=== PATIENT | male | born 1955 | race Two or more races ===

== ENCOUNTER 2023-03-09 11:04 | Outpatient (REF) | payer OTHER, SELFPAY ==
--- NOTE | ~2023-03-09 | XR_ITS ---
EXAMINATION: XR LUMBOSACRAL SPINE WITH OBLIQUES CLINICAL INFORMATION: Status post arthrodesis. COMPARISON: None available. TECHNIQUE: AP, both oblique, and lateral views of the lumbar spine. Lateral view of the lumbosacral junction. FINDINGS: There is bony demineralization. Vertebral body heights are normal. There has been a prior posterior fusion extending from L4 through S1, with intact posterior fixator rods and disc spacers. No hardware failure or loosening is seen. The remaining disc spaces are relatively well-maintained. No acute fracture or spondylolisthesis is seen. There is multi-level moderate thoracic and mild lumbar spondylosis. The posterior elements are intact. The paravertebral soft tissues are unremarkable. XR/XR lumbar spine 4V min IMPRESSION: There is well-maintained alignment status-post L4-S1 posterior fusions and discectomies. No hardware loosening is seen.
== END 2023-03-09 11:05 | disposition home or self-care (01) ==
LOC: HO.HOSX 11:04
PROVIDERS: PCP Internal Medicine; Visit Provider Neurological Surgery
DX: Z98.1 Arthrodesis status (principal)
CPT/HCPCS: 72110

== ENCOUNTER 2023-04-12 10:00 | Outpatient (RCR) | payer OTHER, SELFPAY ==
--- NOTE | 2023-03-17 10:46 | MHC.PT.EP ---
[facility] [place] [facility] [place] [facility] [place] Office [address] Cristy Acevedo [address] [phone] F: [phone] F: [phone] F: [phone] F: [phone] Physical Therapy Plan of Care Date of Evaluation: Date of Surgery: Diagnosis: S/P L4-S1 fusion, arthrodesis status Assessment: 68 y/o male referred to PT S/P L4-S1 fusion, arthrodesis status. This surgery was about 6 months ago and he was painfree for 3 months. States possibly d/t increased activity, he started having increased low back pain with tingling R lateral leg resulting in pain and difficulty with walking, light lifting, sleeping, donning/doffing socks, picking things up from the floor, and getting in/out of car. Examination shows poor core strength, limited lumbar AROM and limited hip ER/IR ROM, poor log-rolling, and pain. Recommend PT 2x/week for 4 weeks to address impairments, implement HEP, and optimize functional mobility. Reviewed back protection with log rolling and getting in/out of car. Frequency and Duration: The patient will be seen 2x/week for 4 weeks Short Term Goals: 2 weeks Compliant with HEP Pt will demonstrate good TA recruitment in hook lying, sitting, and standing Pt will demonstrate increased hip strength by 1/2 MMT for increased lumbopelvic stability Asset Protection Manager Goals: 4 weeks I with HEP and self management of sx Pt will demonstrate ability to walk and negotiate stairs with min to no difficulty Pt will demonstrate ability to perform all lifting ADL's without difficulty Treatment Plan: Modalities to reduce pain, spasms and effusion. Manual therapy to restore motion and function. Therapeutic exercise to improve strength and flexibility. Neuromuscular re-education for posture and balance. Therapeutic activities to return to functional activities of daily living. Electronically signed by: Odette Reagan PT Please sign and return to therapist. Thank you for your referral.
--- NOTE | 2023-05-11 08:21 | MHC.PT.DC ---
[facility] [place] [facility] [place] [facility] [place] Office [address] Cristy Acevedo [address] [phone] F: [phone] F: [phone] F: [phone] F: [phone] Physical Therapy Discharge Report Diagnosis: S/P L4-S1 fusion, arthrodesis status Date of Surgery: Date of Evaluation: 03/17/23 Date of Discharge: 05/11/23 Treatments to Date: 5 Cancellations to Date: 0 No Shows to Date: 0 Discharge Status: Improved Function Independent with HEP Discharge Summary: Pt I with HEP and demonstrating improved technique. Pt to continue with core strengthening as well as back protection that was reviewed first visit. Electronically signed by: Odette Reagan PT Please sign and return to therapist. Thank you for your referral.
== END 2023-05-11 08:22 | disposition home or self-care (01) ==
LOC: HO.PT 10:00
PROVIDERS: PCP Internal Medicine; Visit Provider Neurological Surgery
DX: Z98.1 Arthrodesis status (principal)
CPT/HCPCS: 97110; 97112; 97161

== ENCOUNTER 2023-06-08 12:36 | Outpatient (AMB) | payer OTHER, SELFPAY ==
--- NOTE | 2023-06-08 13:31 | HO.SPINEOV ---
Intake Intake Visit Reasons: 3mo Assessment & Plan Assessment & Plan (1) Status post lumbar and lumbosacral fusion by anterior technique: Code(s): Z98.1 - Arthrodesis status Plan Dear colleague, On 06/08/2023, I saw for follow-up carter Alicia for ongoing back pain. He status post L4-S1 fusion from which he recovered very well. He complains of a mid lumbar back pain that is worse at night and in the morning. Weather conditions also influenced pain. Activity slightly improves his symptoms. Physical therapy did not improve symptoms. His pain sounds arthritic in origin. I would like to order CT of the lumbar spine to assess fusion. I will see him back if the CT is done. Carroll Wei MD, PhD Spine Fellowship Trained Neurosurgeon Director, [facility] Orders: Orders CT lumbar spine wo IV con Today Z98.1 - Arthrodesis status Coding Level of Care Code Est Pt Level 2 (88827) Diagnoses Status post lumbar and lumbosacral fusion by anterior technique Z98.1
== END 2023-06-08 14:11 | disposition home or self-care (01) ==
PROVIDERS: PCP Internal Medicine; Visit Provider Neurological Surgery
DX: Z98.1 Arthrodesis status (principal)
CPT/HCPCS: 99212

== ENCOUNTER → 2023-06-08 12:36 | Outpatient (BNVA) | payer OTHER, SELFPAY | PROVIDERS: Visit Provider Neurological Surgery ==

== ENCOUNTER 2023-06-21 07:25 | Outpatient (REF) | payer MEDICARE, SELFPAY ==
--- NOTE | ~2023-06-21 | CT_ITS ---
EXAMINATION: CT LUMBAR SPINE WITHOUT CONTRAST CLINICAL INFORMATION: Arthrodesis status. COMPARISON: Lumbar spine radiographs 03/09/2023. TECHNIQUE: Finish Molder images were obtained. CT imaging of the lumbar spine was performed without contrast. Data was reformatted into multiplanar images at the acquisition workstation. This CT examination was performed using dose optimization techniques as appropriate, variously including the following: *Automated exposure control *Adjustment of mA and/or kV according to patient size (this includes techniques or standardized protocols for targeted exams where dose is matched to indication/reason for exam; i.e. extremities or head) *Use of iterative reconstruction technique DLP; 571 mGy-cm FINDINGS: There are postoperative changes of a spinal fusion with transpedicular hardware extending from L4 to S1. Hardware is grossly intact with no evidence of suggest loosening or failure. No identifiable bridging bone to confirm the presence of osseous union. Spine alignment is otherwise normal in the sagittal dimension. Vertebral heights are preserved. No acute fracture. Intervertebral disc is are maintained at all levels. Canal patency is not well assessed on this examination due to inherent limitations of CT without intrathecal contrast. Grossly no spinal canal compromise. Limited visualization of the retroperitoneal anatomy reveals no abnormal finding. CT/CT lumbar spine wo IV con IMPRESSION: There are postoperative changes of a spinal fusion with transpedicular hardware extending from L4 to S1. Hardware is grossly intact with no evidence of suggest loosening or failure. No identifiable bridging bone to confirm the presence of osseous union.
== END 2023-06-21 07:26 | disposition home or self-care (01) ==
LOC: HO.CT 07:25
PROVIDERS: PCP Internal Medicine; Visit Provider Neurological Surgery
DX: Z98.1 Arthrodesis status (principal)
CPT/HCPCS: 72131

== ENCOUNTER 2023-06-28 14:30 | Outpatient (AMB) | payer MEDICARE, SELFPAY ==
--- NOTE | 2023-06-28 15:13 | HO.SPINEOV ---
Intake Intake Visit Reasons: CT follow up Intake Note: Mr. Alicia is here today to follow up on CT Scan results. 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 Roblero, On 06/28/2023 I saw for follow-up Napoleon Alicia. He underwent an L4-S1 lumbar fusion in August for severe neurogenic claudication. Those symptoms have disappeared. His main complaint is a mid lumbar back pain with laying down, early in the morning and with in activity. Activity improves the back pain. I obtained a CT of the lumbar spine that shows a solid L5-S1 fusion and an ongoing L4-L5 fusion. He does have significant facet arthropathy and I am wondering if the pain is related to the L3-4 facet joints above the previous fusion. He also tells me that he has significant pain in his hands and shoulders, another sign of arthritis. He will start anti-inflammatory drugs and may call my office for referral for L3-4 facet blocks. I spent 20 minutes in this consult for preparation and review of images. Carroll Wei MD, PhD Spine Fellowship Trained Neurosurgeon Director, [facility] [place] [facility] Coding Level of Care Code Est Pt Level 3 (07785) Diagnoses Status post lumbar and lumbosacral fusion by anterior technique Z98.1 Arthritis, lumbar spine M47.816
== END 2023-06-28 15:57 | disposition home or self-care (01) ==
PROVIDERS: PCP Internal Medicine; Visit Provider Neurological Surgery
DX: Z98.1 Arthrodesis status (principal); M47.816 Spondylosis without myelopathy or radiculopathy, lumbar region
CPT/HCPCS: 99213

== ENCOUNTER → 2023-06-28 14:30 | Outpatient (BNVA) | payer MEDICARE, SELFPAY | PROVIDERS: PCP Internal Medicine; Visit Provider Neurological Surgery | DX: M47.816 Spondylosis without myelopathy or radiculopathy, lumbar region (principal); Z98.1 Arthrodesis status | CPT/HCPCS: 99212 ==

== ENCOUNTER 2024-03-14 14:22 | Outpatient (AMB) | payer MEDICARE, SELFPAY ==
--- NOTE | 2024-03-14 14:36 | A.SPINEOV_ITS ---
Intake Visit Reasons: low back pain Intake Note: Mr. Alicia is here today c/o low back pain. 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 He is status post L4-S1 anterior lumbar interbody fusion. This surgery worked well for his neurogenic claudication symptoms but he is complaining of severe back pain in the lumbar area for year and a half. A CT scan of the lumbar spine showed a solid fusion L4-S1 but also severe facet arthropathy L3-4. I am wondering if his pain is facet related. He wonders if the instrumentation can give him pain as well. I guess that is an option but is very rare. I would 1st like to do facet blocks. I will refer him to our pain management team. He will return to my clinic if those injections are not helpful. I spent 20 minutes in his consult. Carroll Wei MD, PhD Spine Fellowship Trained Neurosurgeon Director, [facility] [place] [facility] Orders: Referrals Pain Management Referral M47.816 - Spondylosis without myelopathy or radiculopathy, lumbar region, Z98.1 - Arthrodesis status Coding Level of Care Code Est Pt Level 3 (21683) Diagnoses Status post lumbar and lumbosacral fusion by anterior technique Z98.1 Arthritis, lumbar spine M47.816
== END 2024-03-14 15:24 | disposition home or self-care (01) ==
PROVIDERS: PCP Internal Medicine; Visit Provider Neurological Surgery
DX: Z98.1 Arthrodesis status (principal); M47.816 Spondylosis without myelopathy or radiculopathy, lumbar region
CPT/HCPCS: 99213

== ENCOUNTER → 2024-03-14 14:22 | Outpatient (BNVA) | payer MEDICARE, SELFPAY | PROVIDERS: PCP Internal Medicine; Visit Provider Neurological Surgery | DX: M47.816 Spondylosis without myelopathy or radiculopathy, lumbar region (principal); Z98.1 Arthrodesis status | CPT/HCPCS: 99212 ==

== ENCOUNTER 2025-01-30 15:12 | Outpatient (AMB) | payer MEDICARE, SELFPAY ==
--- NOTE | 2025-01-30 15:14 | HO.SPINEOV ---
Vital Signs 01/30/25 15:17 Height 5 ft 2 in Weight 174 lb BMI 31.8 Intake Visit Reasons: C/o persistent back pain. Intake Note: Mr. Alicia is here today c/o Low back pain. Kinesiologist Required: No Allergies No Known Allergies Allergy (Verified 01/30/25 15:17) Physical Exam Vital Signs: BMI result Body Mass Index 31.8 Assessment & Plan Assessment & Plan (1) Status post lumbar and lumbosacral fusion by anterior technique: Code(s): Z98.1 - Arthrodesis status Category: Surgical Plan Napoleon is a pleasant 70 year old male who underwent L4-S1 lumbar fusion with Dr. Wei back in 2022. To recap he was evaluated subsequently back in 2022 after surgery for continued back pain. At that time it responded well to ice. Dr. Wei sent him for PT, then a CT scan. He noted excellent fusion at L4-S1. The patient was also found to have quite a bit of facet arthropathy, and was referred to Dr. Perry for facet blocks. Dr. Perry was willing to proceed, but stated that may not be successful due to the overlying surgical hardware. After this was relayed to the patient he refused the injections. He is now back in clinic today to once again discuss his back pain. Today, he reports he has continues severe axial low back pain which has been worsening since he saw Dr. Wei last. He denies any radicular component to his pain. He is concerned that there may be a problem in his low spine other than simply related to his surgery. He states that with increased activity such as performing ADLs around the home his pain significantly worsens to the point where he is unable to walk properly. As stated above he has attempted physical therapy, and at-home stretching/exercise. In addition to this he has attempted several different enkb-afj-zfxltut medications including Tylenol, NSAIDs, pain gel/creams, and pain patches such as Salonpas and lidocaine. Unfortunately his pain continues to persist despite all of these conservative measures. On examination, he has 5/5 strength in his bilateral lower extremities. He ambulates well and rises from a seated position with the assistance of a chair. He has no significant sensational deficits disclosed on examination. (-) bilateral straight leg raise, (-) clonus. On inspection of the closed posterior incision site from his prior surgery they appear to have healed very well. I am not able to palpate any hardware that is out of place or irritating the subcutaneous skin. Given that Napoleon continues to present for severe axial low back pain in his tried several different forms of conservative treatment, I think a MRI of the lumbar spine is reasonable to obtain at this time. I will review it with Dr. Wei when he returns from vacation, and call and update the patient with the results. Ish Wei MD,PhD [facility] Orders: Orders MR lumbar spine wo con 01/30/25 Z98.1 - Arthrodesis status Coding Level of Care Code Est Pt Level 3 (21773) Diagnoses Status post lumbar and lumbosacral fusion by anterior technique Z98.1
[2025-01-30 15:17] VITALS: BMI 31.8
--- OUTSIDE RECORDS SUMMARY | 2025-01-30 17:41 | XMS_ITS | Clinical Summary ---
Author Organization [facility] Address [address] [place] [address] Care Team Providers Care Periodicals Library Assistant Name Role Phone Unavailable Primary Care Provider Unavailabl e Allergies No known active allergies Medications Medication Sig Dispensed Refills Start Date End Date Status LOSARTAN POTASSIUM PO Take 1 tablet by mouth daily. 0 Active ibuprofen 200 MG tablet Take 200 mg by mouth every 6 (six) hours as needed for pain. 0 Active Social History Tobacco Use Types Packs/Day Years Used Date Smoking Tobacco: Never Smokeless Tobacco: Never Alcohol Use Standard Drinks/Week Comments Yes 0 (1 standard drink = 0.6 oz pur e alcohol) social Sex and Gender Information Value Date Recorded Sex Assigned at Not on file Gender Identity Not on file Sexual Orientation Not on file Job Start Date Occupation Industry Not on file Not on file Not on file Last Filed Vital Signs Vital Sign Reading Time Taken Comments Blood Pressure 172/105 09/11/2021 8:43 AM EST Pulse 89 09/11/2021 8:43 AM EST Temperature 36.8 ??C (98.2 ??F) 09/11/2021 8:43 AM ES T Respiratory Rate 16 09/11/2021 8:43 AM EST Oxygen Saturation 99% 09/11/2021 8:43 AM EST Inhaled Oxygen Concentration - - Weight 77.1 kg (170 lb) 09/11/2021 8:43 AM EST Height 162.6 cm (5' 4 ) 09/11/2021 8:43 AM EST Body Mass Index 29.18 09/11/2021 8:43 AM EST Plan of Treatment Health Maintenance Due Date Last Done Comments Hepatitis C Screening 1955 COVID-19 Vaccine (#1) 1954 Depression Screening 1966 Preventative Health Evaluation 01/05/1972 DTap / Tdap / Td (1 - Tdap) 1973 Colon Cancer Screening (Colonoscopy) 1999 Shingrix-Zoster Vaccine (1 of 2) 01/05/2004 Fall Risk Assessment 2019 Pneumococcal Vaccine (1 of 1 - PCV) 2019 Influenza Vaccine (#1) 2024 RSV Adult > 60+ Yrs or Pregn ant (1 - 1-dose 75+ series) 2029 Hepatitis B Vaccines Aged Out No long er eligible based on patient's age to complete this topic RSV Ped < 20 months Aged Out No longe r eligible based on patient's age to complete this topic [place]apoleon Personal/Family Self 1955 [address] [place] [address]
--- OUTSIDE RECORDS SUMMARY | 2025-01-30 17:41 | XMS_ITS | Clinical Summary ---
Author Organization [email or web address] Address [address] [facility] [address] [place] [address] Care Team Providers Care Machine Shorthand Reporter Name Role Phone Unavailable Primary Care Provider Unavailabl e Social History Tobacco Use Types Packs/Day Years Used Date Smoking Tobacco: Never Assessed Sex and Gender Information Value Date Recorded Sex Assigned at Male 08/30/2022 10:40 AM EDT Legal Sex Male 10:40 AM EDT Gender Identity Male 08/30/2022 10:40 AM EDT Sexual Orientation Straight 08/30/2022 10 :40 AM EDT Plan of Treatment Health Maintenance Due Date Last Done Comments CT Colonography 1954 Colonoscopy 1954 Colorectal Cancer Screening 1954 Depression Screening 1954 FIT DNA/Cologuard 1954 FIT 1954 FOBT 1954 Lipid Panel 1954 Sigmoidoscopy 1954 Alcohol/Substance Use Screening 1966 Tobacco Screening 1966 DTaP/Tdap/Td Vaccines (1 - Tdap) 1973 Pneumococcal Vaccine: 50+ Ye ars (1 of 1 - PCV) 01/05/2004 Zoster Vaccines (1 of 2) 01/05/2004 COVID-19 Vaccine ( - 2023-2 5 season) 2024 Influenza Vaccine (#1) 2024 RSV Patients and Pa tients Aged 60 years or older (1 - 1-dose 75+ series) 2029 HIB Vaccines Aged Out No longer eligi ble based on patient's age to complete this topic HPV Vaccines Aged Out No longer eligi ble based on patient's age to complete this topic Hepatitis A Vaccines Aged Out No long er eligible based on patient's age to complete this topic Hepatitis B Vaccines Aged Out No long er eligible based on patient's age to complete this topic IPV Vaccines Aged Out No longer eligi ble based on patient's age to complete this topic Meningococcal Vaccine Aged Out No kaya jalyn eligible based on patient's age to complete this topic RSV under 20 months Aged Out No longe r eligible based on patient's age to complete this topic Rotavirus Vaccines Aged Out No longer eligible based on patient's age to complete this topic
--- OUTSIDE RECORDS SUMMARY | 2025-01-30 17:41 | XMS_ITS | Clinical Summary ---
Author Organization [facility], Address [address] [place] [address] Phone Care Team Providers Care Waxer Name Role Phone Unavailable Primary Care Provider Unavailabl e Allergies No known active allergies Medications docusate sodium (COLACE) 100 MG capsule Take 100 mg by mouth in the morning and 100 mg in the evening. Active hydroCHLOROthia zide 25 MG tablet Take 25 mg by mouth 1 (one) time each day Active ibuprofen (ADVIL,MOTRIN) 200 MG tablet Take 200 mg by mouth every 6 (six) hours if needed for mild pain Active losartan (COZAAR) 50 MG tablet Take 50 mg by mouth 1 (one) time each day Active oxyCODONE (OXY-IR) 5 MG immediate release capsule Take 5 mg by mouth every 4 (four) hours if needed for moderate pain Active sildenafil (VIAGRA) 100 MG tablet Take 100 mg by mouth 1 (one) time each day if needed for erectile dysfunction Active Active Problems Problem Noted Date Diagnosed Date Lumbar radiculopathy 08/09/2022 Spondylolisthesis of lumbar region 08/09/2022 Social History Tobacco Use Types Packs/Day Years Used Date Smoking Tobacco: Never Assessed Sex and Gender Information Value Date Recorded Sex Assigned at Not on file Legal Sex Male 10:36 AM EDT Gender Identity Not on file Sexual Orientation Not on file Last Filed Vital Signs Vital Sign Reading Time Taken Comments Blood Pressure 149/74 09/01/2022 11:21 AM EDT Pulse 102 09/01/2022 11:21 AM EDT Temperature 36.2 ??C (97.1 ??F) 09/01/2022 11:21 AM E DT Respiratory Rate - - Oxygen Saturation - - Inhaled Oxygen Concentration - - Weight - - Height - - Body Mass Index - - Plan of Treatment Health Maintenance Due Date Last Done Comments Colorectal Cancer Screening: Annual FOBT 2003 Colorectal Cancer Screening: Colonoscopy 2003 Colorectal Cancer Screening: Sigmoidoscopy 2003 Pneumococcal Vaccine: 65+ Ye ars (1 of - PCV) 2019 Influenza Vaccine (Season Ended) 2025 Hepatitis B Vaccine Aged Out No longe r eligible based on patient's age to complete this topic Insurance [facility] ([id number])
--- OUTSIDE RECORDS SUMMARY | 2025-01-30 17:41 | XMS_ITS | Clinical Summary ---
Author Organization [facility] [address] [facility] Address [address] [place] [address] [place] [address] Phone Care Team Providers Care Tin Cutter Name Role Phone Naveen Roblero MD Primary Care Provider [phone] Allergies No known active allergies Medications ibuprofen (ADVIL,MOTRIN) 200 mg tablet Take 1 tablet (200 mg total) by mouth every 6 hours as needed for mild pain. Active lidocaine (ZTlido) 1.8 % adhesive patch,medicate d Apply 1 patch topically 1 (one) time each day if needed. (pain). Apply for no more than 12 hours in a 24 hour period 4 Active mv-min/folic/K 1/lycopen/lute in (CENTRUM SILVER MEN ORAL) Take 1 tablet by mouth 1 (one) time each day. Active hydroCHLOROthi azide (HYDRODIURIL) 25 mg tablet TAKE 1 TABLET BY MOUTH DAILY 90 tablet 5 Active losartan (COZAAR) 50 mg tablet TAKE 1 TABLET BY MOUTH DAILY 90 tablet 5 Active clonazePAM (KlonoPIN) 0.5 mg tablet Take 1 tablet (0.5 mg total) by mouth 1 (one) time each day if needed for anxiety. for up to 60 days Max Daily Amount: 0.5 mg 30 tablet 5 Active sildenafiL (VIAGRA) 100 mg tablet Sig: START WITH 1/2 TABLET BY MOUTH AND INCREASE TO 1 TABLET NEEDED 30-60 MINUTES BEFORE INTERCOURSE MAX OF 100MG IN 24 HOURS 10 tablet 5 5 Active sildenafiL (VIAGRA) 100 mg tablet Take by mouth. Sig: START WITH 1/2 TABLET BY MOUTH AND INCREASE TO 1 TABLET NEEDED 30-60 MINUTES BEFORE INTERCOURSE MAX OF 100MG IN 24 HOURS 4 01/15/20 25 Discontin ued(Reord er) Active Problems Problem Noted Date Diagnosed Date Spondylolisthesis, lumbar region 06/10/2022 Overview (07/31/2024): Last Assessment & Plan: Patient is 3 weeks s/p L4-5, L5-S1 OLIF with posterior screw fixation. He states his preop right leg pain is gone, he has been dealing with left posterior leg pain that was mild for about a week after surgery, now seems to be more calf pain the last 2 weeks, he states he did not have left leg pain preop. He has not had any fevers or wound drainage, he did have some sweats at night and checked his temps which were all normal at home. He has been ambulating and staying active. He does require some Dilaudid, tried just using Tylenol and did not find enough pain relief. Mr. Alicia is doing well postop, however given his left calf pain, sweats at night, we will check left lower extremity Dopplers to rule out DVT. He has a follow-up appointment in 6 weeks with lumbar spine x-rays with Dr. Wei. All postop questions answered, his left leg symptoms could be postsurgical pain that should resolve in the next few weeks. I asked him to call with any concerns or questions prior to his next appointment. Lumbar radiculopathy, right 03/12/2022 Overview (07/31/2024): Last Assessment & Plan: Patient is 2 weeks s/p L5-S1 Penaloza procedure with decompression of L5 nerve root, for right L5 radiculopathy with spondylolisthesis. Patient states his right leg pain is gone, he is feeling well other than some right low back pain, he thinks it could be incisional pain. He was using oxycodone for about a week +, currently is just using Tylenol. He notes that he is sleeping better, walking better. He denies any fever, wound drainage, sweats chills, bowel bladder issues, poor appetite. He had low- grade temp right after surgery, did deep breathing exercises and that resolved. Patient is doing well, should note continued improvements with time. He is already active and walking, will increase his activities as tolerated. I asked him to call for a second postop visit in 6 weeks if he has persistent low back pain, however he is doing well and likely he will feel better by then. All postop questions answered. He will call with any concerns or questions. He did not need a refill on pain medication today. JAVID-inhibitor cough 12/27/2018 Essential hypertension 11/06/2018 Assessment & Plan (12/28/2024 3:45 PM EST): Orders: Basic metabolic panel; Future Benign prostatic hyperplasia with nocturia 06/22 Anxiety disorder 06/19/2015 Depression 05/01/2015 Lumbago 05/01/2015 Encounters Date Type Department Care Team Description 12/28/2024 3:00 PM EST Office Visit Adult Medicine [address] [phone] Naveen Roblero MD Encounter for subsequent annual wellness visit (AWV) in Medicare patient (Primary Dx); Essential hypertension; High cholesterol from Last 3 Months Immunizations Name Administration Dates Next Due Influenza Quadravalent, MDCK , 0.5ml, preservative free (Flucelvax) 6mo and older 07/23/2020,12/27/2018 Influenza Quadravalent, MDCK , 0.5ml, with preservative (Flucelvax) 6mo and older 08/16/2021 Influenza trivalent, 0.5mL ( Fluzone High-dose) 65yo and older 07/18/2023 Influenza trivalent, with pr eservative (Fluzone; Afluria) 6mo and older 08/10/2019 Pneumococcal conjugate 13 va lent (Prevnar 13, PCV13) 2mo and older 02/19/2019 Tdap Tetanus diptheria acell ular pertussis (Boostrix; Adacel) 7yo and older 07/20/2012 Zoster Live 12/20/2017 Surgical History Surgery Date Site/Laterality Comments COLONOSCOPY 07/12/2006 PROCEDURE: HISTORICAL COLONOSCOPY; COMMENT: Dr. Vega - internal hemorrhoids, diverticulosis, otherwise negative to the cecum COLONOSCOPY 02/24/2015 PROCEDURE: HISTORICAL COLONOSCOPY; COMMENT: normal OTHER SURGICAL HISTORY 02/26/2022 PROCEDURE: SD JIMENES FACETECTOMY & FORAMOTOMY 1 VRT SGM LUMBAR; COMMENT: L5-S1 Penaloza procedure with decompression of L5 nerve root for right L5 radiculopathy with spondylolisthesis, Dr. Wei OTHER SURGICAL HISTORY 09/15/2022 PROCEDURE: SD ARTHRODESIS POSTERIOR INTERBODY 1 NTRSPC LUMBAR; COMMENT: L4-5, L5-S1 OLIF with posterior screw fixation, Dr. Wei Medical History Medical History Date Comments Obesity 07/20/2012 DX:Obesity HTN (hypertension) DX:HTN (hyper tension) Family History Medical History Relation Name Comments Hypertension Son Diabetes Other cancer Neg Hx no one with any ca as of 2016 Relation Name Status Comments Son Social History Tobacco Use Types Packs/Day Years Used Date Smoking Tobacco: Never Smokeless Tobacco: Never Tobacco Cessation:Counseling Given: Not Answered Alcohol Use Standard Drinks/Week Comments Yes 4.2 (1 standard drink = 0.6 oz p ure alcohol) Sex and Gender Information Value Date Recorded Sex Assigned at Not on file Legal Sex Male 1:55 AM EST Gender Identity Not on file Sexual Orientation Not on file Obstetrics History Last Filed Vital Signs Vital Sign Reading Time Taken Comments Blood Pressure 110/70 12/28/2024 3:09 PM EST c R arm Pulse 85 12/28/2024 3:09 PM EST Temperature 36.4 ??C (97.6 ??F) 12/28/2024 3:09 PM ES T Respiratory Rate 19 12/28/2024 3:09 PM EST Oxygen Saturation 98% 12/28/2024 3:09 PM EST Inhaled Oxygen Concentration - - Weight 78.5 kg (173 lb) 12/28/2024 3:09 PM EST Height 157.5 cm (5' 2 ) 12/28/2024 3:09 PM EST Body Mass Index 31.64 12/28/2024 3:09 PM EST Plan of Treatment Upcoming Encounters Date Type Department Care Team (Late st Contact Info) Description 07/09/2025 9:30 AM EDT Office Visit Adult Medicine [address] [phone] Naveen Roblero MD [address] [place] [address] [phone] 12/30/2025 3:00 PM EST Office Visit Adult Medicine [address] [phone] Naveen Roblero MD [address] [place] [address] Health Maintenance Due Date Last Done Comments Zoster Vaccines (2 of 3) 02/14/2018 12/20/2017 Pneumococcal Vaccine: 50+ Years (2 of 2 - PPSV23) 02/20/2020 02/19/2019 DTaP,Tdap,and Td Vaccines (2 - Td or Tdap) 07/20/2022 07/20/2012 Social Influencers of Health Screening 10/09/2022 COVID-19 Vaccine ( season) 2024 10/02/2021, 02/04/2021, 01/14/2021 Colorectal Cancer Screening: Colonoscopy 02/24/2025 02/24/2015 Depression Screening 12/28/2025 12/28/2024 Falls Risk Assessment 12/28/2025 12/28/2024 Medicare Annual Wellness Visit 12/28/2025 12/28/2024 Hypertension/CHF/CAD Annual BMP Blood Test 01/01/2026 01/01/2025, 07/18/2023 RSV Immunization Adult Patients (1 - 1-dose 75+ series) 2029 Cholesterol Screening (Lipid Panel) 01/01/2030 01/01/2025, 07/18/2023 Hepatitis C Screening Completed 09/17/2015 Influenza Vaccine Completed 07/23/2024, , 08/16/2021, Additional history exists HIB Vaccines Aged Out No longer eligi [...] on patient's age to complete this topic MMR Vaccines Aged Out No longer eligi ble based on patient's age to complete this topic Meningococcal ACWY Vaccine Aged Out N o longer eligible based on patient's age to complete this topic Meningococcal B Vacine Aged Out No lo nger eligible based on patient's age to complete this topic RSV Immunization Patients Under 20 months Aged Out No longer eligible based on patient's age to complete this topic Varicella Vaccines Aged Out No longer eligible based on patient's age to complete this topic Procedures Procedure Name Priority Date/Time Associated Diagnosis Comments BASIC METABOLIC PANEL Routine 01/01/2025 11:43 AM EST Essential hypertension LIPID PANEL WITH REFLEX TO DIRECT LDL Routine 01/01/2025 11:43 AM EST High cholesterol HEPATITIS C SCREENING Routine 09/17/2015 COLONOSCOPY Routine 02/24/2015 from Last 3 Months or Most Recently Relevant to Health Maintenance Results * (ABNORMAL) Lipid panel with reflex to direct LDL (01/01/2025 11:43 AM EST) Cholesterol 176 0 - 200 mg/dL LAB CHEMISTRY METHOD 01/01/2025 3:55 PM [facility] Triglycerides 137 0 - 150 mg/dL LAB CHEMISTRY METHOD 01/01/2025 3:55 PM [facility] HDL 43 >=40 mg/dL LAB CHEMISTRY METHOD 01/01/2025 3:55 PM [facility] LDL Calculated 106(H) 0 - 100 mg/dL LAB CHEMISTRY METHOD 01/01/2025 3:55 PM [facility] VLDL Cholesterol Avery 27.4 mg/dL LAB CHEMISTRY METHOD 01/01/2025 3:55 PM [facility] Non HDL Chol. (LDL+VLDL) 133 <145 mg/dL LAB CHEMISTRY METHOD 01/01/2025 3:55 PM [facility] Chol/HDL Ratio 4.1 0.0 - 4.4 LAB CHEMISTRY METHOD 01/01/2025 3:55 PM EST [facility] Blood Venous blood specimen / Unknown Venipuncture / Unknown 01/01/2025 11:43 AM EST 01/01/2025 11:43 AM EST us Naveen Roblero MD LAB BLOOD ORDERABLES Final Resu lt [facility] [address] [place] [address], [place] [phone] * (ABNORMAL) Basic metabolic panel (01/01/2025 11:43 AM EST) Sodium 140 133 - 145 mmol/L LAB CHEMISTRY METHOD 01/01/2025 3:51 PM [facility] Potassium 4.3 3.5 - 5.5 mmol/L LAB CHEMISTRY METHOD 01/01/2025 3:51 PM [facility] Chloride 103 96 - 110 mmol/L LAB CHEMISTRY METHOD 01/01/2025 3:51 PM [facility] CO2 29 21 - 32 mmol/L LAB CHEMISTRY METHOD 01/01/2025 3:51 PM [facility] Anion Gap 8 3 - 11 LAB CHEMISTRY METHOD 01/01/2025 3:51 PM [facility] Glucose 122(H) 70 - 100 mg/dL LAB CHEMISTRY METHOD 01/01/2025 3:51 PM [facility] BUN 17 5 - 25 mg/dL LAB CHEMISTRY METHOD 01/01/2025 3:51 PM [facility] Creatinine 1.14 0.70 - 1.30 mg/dL LAB CHEMISTRY METHOD 01/01/2025 3:51 PM [facility] eGFR 69 >=60 mL/min/1. 73m2 LAB CHEMISTRY METHOD 01/01/2025 3:51 PM [facility] Comment:Calculation based on the??Chronic Kidney Disease Epidemiology Collaboration (CKD-EPI) equation refit??without adjustment for race. BUN/Creatinine Ratio 14.9 LAB CHEMISTRY METHOD 01/01/2025 3:51 PM EST [facility] Calcium 9.6 8.5 - 10.5 mg/dL LAB CHEMISTRY METHOD 01/01/2025 3:51 PM EST [facility] ([facility] Blood Venous blood specimen / Unknown Venipuncture / Unknown 01/01/2025 11:43 AM EST 01/01/2025 11:43 AM EST us Naveen Roblero MD LAB BLOOD ORDERABLES Final Resu lt [facility] ([facility]) [facility] [address] [place] [address], [place] [phone] * Hepatitis C Screening (09/17/2015) Hepatitis C Screening abstracted Historical Provider HEALTH MAINTENANCE Final Result * Colonoscopy (02/24/2015) Colonoscopy no interpretation , abstracted Anatomical Region Laterality Modality Other Historical Provider HEALTH MAINTENANCE Final Result from Last 3 Months or Most Recently Relevant to Health Maintenance Insurance [employer] - [place] MEDICARE ADVANTAGE Advance Directives * Full Code - Confirmed (Latest Code Status on File) Date Activated Date Inactivated Comments 12/28/2024 3:45 PM This code stat us was ascertained in the following way: Code status discussion: discussion with patient To update the patient's code status, place a code status order. Do not modify or discontinue any currently active code status orders. Care Teams Tin Cutter Relationship Specialty Start Date End Date Naveen Roblero MD [address] [place] [id number] PCP - General Internal Medicine 09/04/24
--- OUTSIDE RECORDS SUMMARY | 2025-01-30 17:41 | XMS_ITS | Encounter Summary ---
Author Organization [employer] [facility] Address [address] [facility] 7[address] [place] [address] Care Team Providers Care Locomotive Mechanic Name Role Phone Unavailable Primary Care Provider Unavailabl e Encounter Details Date Type Department Care Team (Latest Contact Info) Description 01/11/2022 Abstract [facility] CONVERSIONS Dental, Provider, DDS Social History Tobacco Use Types Packs/Day Years Used Date Smoking Tobacco: Never Assessed Sex and Gender Information Value Date Recorded Sex Assigned at Male 08/30/2022 10:40 AM EDT Legal Sex Male 10:40 AM EDT Gender Identity Male 08/30/2022 10:40 AM EDT Sexual Orientation Straight 08/30/2022 10 :40 AM EDT documented as of this encounter Plan of Treatment Not on file documented as of this encounter Visit Diagnoses Not on filedocumented in this encounter
== END 2025-01-30 15:44 | disposition home or self-care (01) ==
LOC: HO.HNS 15:13
PROVIDERS: PCP Internal Medicine; Visit Provider Physician Assistant
DX: Z98.1 Arthrodesis status (principal)
CPT/HCPCS: 99213

== ENCOUNTER → 2025-01-30 15:12 | Outpatient (BNVA) | payer MEDICARE, SELFPAY | PROVIDERS: PCP Internal Medicine; Visit Provider Physician Assistant | DX: M54.50 Low back pain, unspecified (principal); Z98.1 Arthrodesis status | CPT/HCPCS: 99212 ==

== ENCOUNTER → 2025-02-21 11:15 | Outpatient (BNV) | payer MEDICARE, SELFPAY | PROVIDERS: PCP Internal Medicine; Visit Provider Radiology Diagnostic Radiology | DX: M51.369 Other intervertebral disc degeneration, lumbar region without mention of lumbar back pain or lower extremity pain (principal); M48.061 Spinal stenosis, lumbar region without neurogenic claudication | CPT/HCPCS: 72148 ==

== ENCOUNTER 2025-02-21 11:31 | Outpatient (REF) | payer MEDICARE, SELFPAY ==
--- NOTE | ~2025-02-21 | MR_ITS ---
CLINICAL HISTORY: Z98.1 - SEVERE AXIAL LBP IN L4-S1 FUSION 2022 --- Additional Notes or Special Instr uctions: Severe axial low back pain in the setting of L4-S1 fusion in 2022. MR of the lumbar spine without contrast Comparison: None Findings: Normal alignment. Status post posterior fusion at L4 through S1 with interbody disc spacers. Mild amount of Modic type 2 change T11/T12, T12/L1. 1.4 cm hemangioma in T12. 8 mm hemangioma in T2. 6 mm hemangioma in L3. Otherwise normal marrow signal. No cord expansion or abnormal signal intensity. The conus medullaris terminates at L1, which is normal. The cauda equina is unremarkable. L1/L2: 3 mm broad-based disc bulge. No facet joint or ligamentum flavum hypertrophy. Mild central canal stenosis. Mild bilateral lateral recess stenosis. No foraminal stenosis. L2/L3: 4 mm broad-based disc bulge. Moderate facet joint and ligamentum flavum hypertrophy. Mild central canal stenosis. Mild bilateral lateral recess stenosis. Minimal bilateral foraminal stenosis. L3/L4: 4 mm broad-based disc bulge. Moderate to severe facet joint and ligamentum flavum hypertrophy. Moderate central canal stenosis. Moderate to severe bilateral lateral recess stenosis. Mild bilateral foraminal stenosis, greater on the left. L4/L5: Status post discectomy. Moderate facet joint and ligamentum flavum hypertrophy. Mild central canal stenosis. Moderate right and mild left lateral recess stenosis. No foraminal stenosis. L5/S1: Status post discectomy. Moderate facet joint and ligamentum flavum hypertrophy. Mild central canal stenosis. Mild right and no left lateral recess stenosis. Minimal right and no left foraminal stenosis. Bilateral renal parapelvic cysts. Impression: No acute findings. Multilevel degenerative change, detailed above. Central canal stenosis is most prominent at L3/L4 with moderate central stenosis. This document has been electronically signed by: Debby Ortega MD on 02/26/2025 14:13:14
--- OUTSIDE RECORDS SUMMARY | 2025-02-21 13:54 | XMS_ITS | Clinical Summary ---
Author Organization [facility] [address] [facility] Address [address] [place] [address] [place] [address] Phone Care Team Providers Care Editor Magazine Name Role Phone Naveen Roblero MD Primary Care Provider [phone] Allergies No known active allergies Medications ibuprofen (ADVIL,MOTRIN) 200 mg tablet Take 1 tablet (200 mg total) by mouth every 6 hours as needed for mild pain. Active lidocaine (ZTlido) 1.8 % adhesive patch,medicated Apply 1 patch topically 1 (one) time each day if needed. (pain). Apply for no more than 12 hours in a 24 hour period 4 Active mv-min/folic/K1 /lycopen/lutein (CENTRUM SILVER MEN ORAL) Take 1 tablet by mouth 1 (one) time each day. Active hydroCHLOROthia zide (HYDRODIURIL) 25 mg tablet TAKE 1 TABLET [...] 24 HOURS 10 tablet 5 5 Active Active Problems Problem Noted Date Diagnosed [...] 3:00 PM EST Office Visit Adult Medicine [address] [phone] Naveen Roblero MD Encounter for subsequent annual [...] COMMENT: normal OTHER SURGICAL HISTORY 02/26/2022 PROCEDURE: CA JIMENES FACETECTOMY & FORAMOTOMY 1 VRT SGM LUMBAR; COMMENT: L5-S1 Penaloza procedure with decompression of L5 nerve root for right L5 radiculopathy with spondylolisthesis, Dr. Wei OTHER SURGICAL HISTORY 09/15/2022 PROCEDURE: CA ARTHRODESIS POSTERIOR INTERBODY 1 NTRSPC LUMBAR; COMMENT: L4-5, L5-S1 OLIF with posterior screw fixation, Dr. Wei Medical History Medical History Date Comments Obesity 07/20/2012 DX:Obesity HTN (hypertension) DX:HTN (hyper tension) Family History Medical History Relation Name Comments Hypertension Son Diabetes Other cancer Neg Hx no one with any ca as of 2017 Relation Name Status Comments Son Social History [...] 9:30 AM EDT Office Visit Adult Medicine [address] [phone] Naveen Roblero MD [address] [place] [phone] 12/30/2025 3:00 PM EST Office Visit Adult Medicine [address] [phone] Naveen Roblero MD [address] [place] [phone] Health Maintenance Due Date Last Done Comments [...] age to complete this topic Meningococcal B Vaccine Aged Out No l onger eligible based on patient's age to complete [...] mg/dL LAB CHEMISTRY METHOD 01/01/2025 3:55 PM [facility] Triglycerides 137 0 - 150 mg/dL LAB CHEMISTRY METHOD 01/01/2025 3:55 PM [facility] HDL 43 >=40 mg/dL LAB CHEMISTRY METHOD 01/01/2025 3:55 PM [facility] LDL Calculated 106(H) 0 - 100 mg/dL LAB CHEMISTRY METHOD 01/01/2025 3:55 PM [facility] VLDL Cholesterol Avery 27.4 mg/dL LAB CHEMISTRY METHOD 01/01/2025 3:55 PM [facility] Non HDL Chol. (LDL+VLDL) 133 <145 mg/dL LAB CHEMISTRY METHOD 01/01/2025 3:55 PM [facility] Chol/HDL Ratio 4.1 0.0 - 4.4 LAB CHEMISTRY METHOD 01/01/2025 3:55 PM [facility] Blood Venous blood specimen / Unknown Venipuncture / Unknown 01/01/2025 11:43 AM EST 01/01/2025 11:43 AM EST us Naveen Roblero MD LAB BLOOD ORDERABLES Final Resu lt [facility] [address] [place] [address], * (ABNORMAL) Basic metabolic panel (01/01/2025 11:43 AM EST) Sodium 140 133 - 145 mmol/L LAB CHEMISTRY METHOD 01/01/2025 3:51 PM EST [facility] Potassium 4.3 3.5 - 5.5 mmol/L LAB CHEMISTRY METHOD 01/01/2025 3:51 PM [facility] Chloride 103 96 - 110 mmol/L LAB CHEMISTRY METHOD 01/01/2025 3:51 PM [facility] CO2 29 21 - 32 mmol/L LAB CHEMISTRY METHOD 01/01/2025 3:51 PM [facility] Anion Gap 8 3 - 11 LAB CHEMISTRY METHOD 01/01/2025 3:51 PM [facility] Glucose 122(H) 70 - 100 mg/dL LAB CHEMISTRY METHOD 01/01/2025 3:51 PM [facility] BUN 17 5 - 25 mg/dL LAB CHEMISTRY METHOD 01/01/2025 3:51 PM [facility] Creatinine 1.14 0.70 - 1.30 mg/dL LAB CHEMISTRY METHOD 01/01/2025 3:51 PM [facility] eGFR 69 >=60 mL/min/1. 73m2 LAB CHEMISTRY METHOD 01/01/2025 3:51 PM [facility] Comment:Calculation based on the??Chronic Kidney Disease Epidemiology Collaboration (CKD-EPI) equation refit??without adjustment for race. BUN/Creatinine Ratio 14.9 LAB CHEMISTRY METHOD 01/01/2025 3:51 PM [facility] Calcium 9.6 8.5 - 10.5 mg/dL LAB CHEMISTRY METHOD 01/01/2025 3:51 PM [facility] Blood Venous blood specimen / Unknown Venipuncture / Unknown 01/01/2025 11:43 AM EST 01/01/2025 11:43 AM EST us Naveen Roblero MD LAB BLOOD ORDERABLES Final Resu lt [facility] [address] [place] [address], [place] [phone] * Hepatitis C Screening (09/17/2015) Hepatitis C [...] currently active code status orders. Care Teams Editor Magazine Relationship Specialty Start Date End Date Naveen Roblero MD [address] [place] [phone] PCP - General Internal Medicine 09/04/24
--- OUTSIDE RECORDS SUMMARY | 2025-02-21 13:54 | XMS_ITS | Clinical Summary ---
Author Organization [facility] Address [address] [place] [address] Care Team Providers Care Locomotive Electrician Name Role Phone Unavailable Primary Care Provider [...] Self 1955 [address] [place] [address]
--- OUTSIDE RECORDS SUMMARY | 2025-02-21 13:54 | XMS_ITS | Clinical Summary ---
Author Organization [facility], Address [address] [place] [address] Phone Care Team Providers Care Group Marketing Vp Name Role Phone Unavailable Primary Care Provider [...] Colorectal Cancer Screening: Sigmoidoscopy 2003 Pneumococcal Vaccine: 50+ Ye ars (1 of - PCV) 01/05/2004 Influenza Vaccine (Season Ended) 2025 Hepatitis B Vaccine Aged Out No longe r eligible based on patient's age to complete this topic Insurance [facility] ([id number])
--- OUTSIDE RECORDS SUMMARY | 2025-02-21 13:54 | XMS_ITS | Encounter Summary ---
Author Organization [facility] Address [address] [facility] [address] [place] [address] Care Team Providers Care Fashion Consultant Selling Name Role Phone Unavailable Primary Care Provider Unavailabl e Encounter Details Date Type Department Care Team (Latest Contact Info) Description 01/11/2022 Abstract [facility] CONVERSIONS Dental, Provider, DDS Social History Tobacco [...]
--- OUTSIDE RECORDS SUMMARY | 2025-02-21 13:54 | XMS_ITS | Clinical Summary ---
Author Organization [employer] Address [address] [facility] [address] [place] [address] Care Team Providers Care Welder Apprentice Arc Name Role Phone Unavailable Primary Care Provider [...]
== END 2025-02-21 11:32 | disposition home or self-care (01) ==
LOC: HO.MRI 11:31
PROVIDERS: PCP Internal Medicine; Visit Provider Physician Assistant
DX: Z98.1 Arthrodesis status (principal); M48.061 Spinal stenosis, lumbar region without neurogenic claudication
CPT/HCPCS: 72148

== ENCOUNTER 2025-03-05 13:11 | Outpatient (AMB) | payer MEDICARE, SELFPAY ==
--- NOTE | 2025-03-05 13:14 | A.SPINEOV_ITS ---
Intake Visit Reasons: MRI f/up Intake Note: Mr. Alicia is here today to F/u on the results to his MRI. Oncology Coordinator Required: No Allergies No Known Allergies Allergy (Verified 03/05/25 13:16) Assessment & Plan Assessment & Plan (1) Status post lumbar and lumbosacral fusion by anterior technique: Code(s): Z98.1 - Arthrodesis status Category: Medical Plan Napoleon is a pleasant 70-year-old male who comes in today to review his MRI imaging. To recap he was continuing to have low back pain despite lumbar fusion L4-5, L5-S1. It is well localized to the middle of his back near what I would call about L5. He denies any radicular component down his legs today. He reports that his pain seems to flare-up after laying on his back for a period of time. His MRI imaging looks very good, it shows no evidence of continued nerve root impingement or degeneration. I believe his pain is likely musculoskeletal in origin. I will send in a prescription of muscle relaxers for him and encouraged him to allow the tincture of time to take its course. We do see improvement from our lumbar spine fusion patient's all the way out to a year out from surgery. She was very happy to hear that he does not require subsequent surgical intervention at this time. Ish Wei MD,PhD [facility] Medications: New baclofen Do not drive or operate heavy machinery while taking this medication as it can sedate you. 10 mg PO TID 30 tabs 1RF muscle spasms Coding Level of Care Code Global (03554) Diagnoses Status post lumbar and lumbosacral fusion by anterior technique Z98.1
--- OUTSIDE RECORDS SUMMARY | 2025-03-05 14:26 | XMS_ITS ---
Author Name [facility] Organization Unknown Encounters Encounter Type Encounter Reason Primary Diagnosis Location Date Ambulatory [facility] 08/10/2024 Care Team Organization Name Specialty Phone Email Start Date End Da te [facility] 2024
--- OUTSIDE RECORDS SUMMARY | 2025-03-05 14:26 | XMS_ITS | Clinical Summary ---
Author Organization [facility] [address] [facility] Address [address] [place] [address] [place] [address] Phone Care Team Providers Care Pie Cutter Name Role Phone Naveen Roblero MD Primary Care Provider [phone] Allergies No known active allergies Medications ibuprofen [...] BY MOUTH DAILY 90 tablet 5 Active sildenafiL (VIAGRA) 100 mg tablet Sig: START WITH 1/2 TABLET BY MOUTH AND INCREASE TO 1 TABLET NEEDED 30-60 MINUTES BEFORE INTERCOURSE MAX OF 100MG IN 24 HOURS 10 tablet 5 5 Active clonazePAM (KlonoPIN) 0.5 mg tablet Take 1 tablet (0.5 mg total) by mouth 1 (one) time each day if needed for anxiety. for up to 60 days Max Daily Amount: 0.5 mg 30 tablet 5 Active clonazePAM (KlonoPIN) 0.5 mg tablet Take 1 tablet (0.5 mg total) by mouth 1 (one) time each day if needed for anxiety. for up to 60 days Max Daily Amount: 0.5 mg 30 tablet 5 02/26/20 25 Discontin ued(Reord er) Active Problems Problem [...] 3:00 PM EST Office Visit Adult Medicine [address] [phone] Naveen Roblero MD Encounter for subsequent annual [...] COMMENT: normal OTHER SURGICAL HISTORY 02/26/2022 PROCEDURE: [place] JIMENES FACETECTOMY & FORAMOTOMY 1 VRT SGM LUMBAR; COMMENT: L5-S1 Penaloza procedure with decompression of L5 nerve root for right L5 radiculopathy with spondylolisthesis, Dr. Wei OTHER SURGICAL HISTORY 09/15/2022 PROCEDURE: [place] ARTHRODESIS POSTERIOR INTERBODY 1 NTRSPC LUMBAR; COMMENT: [...] 9:30 AM EDT Office Visit Adult Medicine [address] [phone] Naveen Roblero MD [address] [place] [address] [place] [address] 12/30/2025 3:00 PM EST Office Visit Adult Medicine [facility] [address] [place] [address] Naveen Roblero MD [address] [place] [address] Health Maintenance Due Date Last Done Comments [...] mg/dL LAB CHEMISTRY METHOD 01/01/2025 3:55 PM [facility] Triglycerides 137 0 - 150 mg/dL LAB CHEMISTRY METHOD 01/01/2025 3:55 PM [facility] HDL 43 >=40 mg/dL LAB CHEMISTRY METHOD 01/01/2025 3:55 PM [facility] LDL Calculated 106(H) 0 - 100 mg/dL LAB CHEMISTRY METHOD 01/01/2025 3:55 PM [facility] VLDL Cholesterol Avery 27.4 mg/dL LAB CHEMISTRY METHOD 01/01/2025 3:55 PM EST [facility] Non HDL Chol. (LDL+VLDL) 133 <145 mg/dL LAB CHEMISTRY METHOD 01/01/2025 3:55 PM [facility] Chol/HDL Ratio 4.1 0.0 - 4.4 LAB CHEMISTRY METHOD 01/01/2025 3:55 PM [facility] Blood Venous blood specimen / Unknown Venipuncture / Unknown 01/01/2025 11:43 AM EST 01/01/2025 11:43 AM EST us Naveen Roblero MD LAB BLOOD ORDERABLES Final Resu lt [facility] [address] [place] [address], * (ABNORMAL) Basic metabolic panel (01/01/2025 11:43 AM EST) Sodium 140 133 - 145 mmol/L LAB CHEMISTRY METHOD 01/01/2025 3:51 PM [facility] Potassium 4.3 3.5 - 5.5 mmol/L LAB CHEMISTRY METHOD 01/01/2025 3:51 PM [facility] Chloride 103 96 - 110 mmol/L LAB CHEMISTRY METHOD 01/01/2025 3:51 PM [facility] CO2 29 21 - 32 mmol/L LAB CHEMISTRY METHOD 01/01/2025 3:51 PM [facility] Anion Gap 8 3 - 11 LAB CHEMISTRY METHOD 01/01/2025 3:51 PM [facility] Glucose 122(H) 70 - 100 mg/dL LAB CHEMISTRY METHOD 01/01/2025 3:51 PM [facility] BUN 17 5 - 25 mg/dL LAB CHEMISTRY METHOD 01/01/2025 3:51 PM [facility] Creatinine 1.14 0.70 - 1.30 mg/dL LAB CHEMISTRY METHOD 01/01/2025 3:51 PM [facility] eGFR 69 >=60 mL/min/1. 73m2 LAB CHEMISTRY METHOD 01/01/2025 3:51 PM [facility] Comment:Calculation based on the??Chronic Kidney Disease Epidemiology Collaboration (CKD-EPI) equation refit??without adjustment for race. BUN/Creatinine Ratio 14.9 LAB CHEMISTRY METHOD 01/01/2025 3:51 PM EST [facility] Calcium 9.6 8.5 - 10.5 mg/dL LAB CHEMISTRY METHOD 01/01/2025 3:51 PM EST [facility] Blood Venous blood specimen / Unknown Venipuncture / Unknown 01/01/2025 11:43 AM EST 01/01/2025 11:43 AM EST Naveen Roblero MD LAB BLOOD ORDERABLES Final Resu lt [facility] [address] [place] [address], [place] [phone] * Hepatitis C Screening (09/17/2015) Hepatitis C [...] currently active code status orders. Care Teams Pie Cutter Relationship Specialty Start Date End Date Naveen Roblero MD [address] [place] [id number] PCP - General Internal Medicine 09/04/24
--- OUTSIDE RECORDS SUMMARY | 2025-03-05 14:26 | XMS_ITS | Clinical Summary ---
Author Organization [facility] Address [address] [place] [address] Care Team Providers Care Longwall Headgate Operator Name Role Phone Unavailable Primary Care Provider [...] Self 1955 [address] [place] [address]
--- OUTSIDE RECORDS SUMMARY | 2025-03-05 14:26 | XMS_ITS | Clinical Summary ---
Author Organization [facility], Address [address] [place] [address] Phone Care Team Providers Care Cylinder Head Assembler Name Role Phone Unavailable Primary Care Provider [...] patient's age to complete this topic Insurance [facility] ([id number])
--- OUTSIDE RECORDS SUMMARY | 2025-03-05 14:26 | XMS_ITS | Encounter Summary ---
Author Organization [facility] Address [address] [place] [address] Care Team Providers Care Antique Furniture Reproducer Name Role Phone Unavailable Primary Care Provider Unavailabl e Encounter Details Date Type Department Care Team (Latest Contact Info) Description 01/11/2022 Abstract [facility] CONVERSIONS Dental, Provider, DDS Social History Tobacco [...]
--- OUTSIDE RECORDS SUMMARY | 2025-03-05 14:26 | XMS_ITS | Clinical Summary ---
Author Organization [employer] Address [address] [place] [address] Care Team Providers Care Lead Operator Name Role Phone Unavailable Primary Care [...] Vaccines (1 of 2) 01/05/2004 COVID-19 Vaccine (2023-2 5 season) 2024 Influenza Vaccine (#1) 2024 [...]
== END 2025-03-05 13:45 | disposition home or self-care (01) ==
LOC: HO.HNS 13:12
PROVIDERS: PCP Internal Medicine; Visit Provider Physician Assistant
DX: Z98.1 Arthrodesis status (principal)
CPT/HCPCS: 99213

== ENCOUNTER → 2025-03-05 13:11 | Outpatient (BNVA) | payer MEDICARE, SELFPAY | PROVIDERS: PCP Internal Medicine; Visit Provider Physician Assistant | DX: Z98.1 Arthrodesis status (principal) | CPT/HCPCS: 99212 ==